=== PATIENT | male | born 1955 | race Caucasian/White ===

== ENCOUNTER 2018-06-12 09:01 | Emergency (ER) | payer OTHER ==
[~2018-06-12] VITALS: Ht 170.2 cm; Wt 70.0 kg
[2018-06-12 09:08] VITALS: Ht 170.2 cm; Wt 70.0 kg
[2018-06-12] MEDS ORDERED: LIDOCAINE/MYLANTA 40 ML BTL PO STA (09:32)
[2018-06-12] MEDS ORDERED: FAMOTIDINE 20 MG INJ IV STA (09:32)
[2018-06-12] MEDS ORDERED: BELLADONNA/PHENOBARBITAL TAB PO STA (09:32)
--- NOTE | 2018-06-12 09:58 | ERD ---
ER Documentation Chief Complaint Chief Complaint BIB RA FOR EVAL OF COUGH X [address] MAGALLANES HPI 62-year-old gentleman who presents with family member who is interpreting. The patient has had several weeks of discomfort. He describes burning epigastric abdominal discomfort that radiates up into his chest that is postprandial worse with spicy and fried foods. Patient had followed up with primary care physician for similar symptoms. He denies any chest pain or pressure, no exertional symptoms. He denies any nausea or vomiting. He does take a PPI. He has not seen a GI specialist. No melena. ROS All systems reviewed and are negative except as per history of present illness. Medications Home Meds Active Scripts Sucralfate* (Carafate*) 1 Gm Tab, 1 GM PO WITH MEALS, #10 TAB Prov:DARLINE GOLDSTEIN MD 06/12/18 Omeprazole* (Omeprazole*) 20 Mg Capsule., 20 MG PO DAILY, #30 Prov:DARLINE GOLDSTEIN MD 06/12/18 Reported Medications Ergocalciferol (Vitamin D2) (VITAMIN D2) 50,000 Unit Capsule, 20038 UNIT PO Q7D, CAP 06/12/18 Meclizine Hcl* (Meclizine Hcl*) 25 Mg Tablet, 25 MG PO BID PRN for DIZZINESS, TAB 06/12/18 Aspirin* (Aspirin* EC) 81 Mg Tablet.dr, 81 MG PO DAILY, TAB 06/12/18 Omeprazole* (Omeprazole*) 40 Mg Capsule.dr, 40 MG PO DAILY, #30 CAP 06/12/18 Metformin Hcl* (Metformin Hcl*) 1,000 Mg Tablet, 1000 MG PO WITH BREAKFAST DINNE, #60 TAB 06/12/18 Sitagliptin* (Januvia*) 100 Mg Tablet, 100 MG PO DAILY, #30 TAB 06/12/18 Allergies Allergies: Coded Allergies: No Known Allergy (Unverified , 06/12/18) PMhx/Soc History of Surgery: Yes (appendectomy ) Hx Cardiac Disorders: Yes (htn) Hx Miscellaneous Medical Probl: Yes (gerd) Hx Alcohol Use: No Hx Substance Use: No Hx Tobacco Use: Yes Smoking Status: Current every day smoker FmHx Family History: No diabetes Physical Exam Vitals Vital Signs Date Temp Pulse Resp B/P (MAP) Pulse Ox O2 O2 Flow FiO2 Time Delivery Rate 06/12/18 90 20 150/99 95 Room Air 11:09 (116) 06/12/18 89 25 150/96 97 Room Air 09:29 (114) 06/12/18 98.2 94 17 134/74 95 09:08 (94) Physical Exam General: Well developed, well nourished, no acute distress Head: Normocephalic, atraumatic. Eyes: Pupils equally reactive, EOM intact ENT: Moist mucous membranes Neck: Supple, no lymphadenopathy Respiratory: Lungs clear bilaterally, no distress Cardiovascular: RRR, no murmurs, rubs, or gallops Abdominal: Soft, mild epigastric abdominal discomfort and tenderness to palpat ion without rebound or guarding, negative Shin sign, no tenderness to McBurney's point, no pulsatile mass : Deferred MSK: No edema, no unilateral swelling, 5/5 strength Neurologic: Alert and oriented, moving all extremities, normal speech, no focal weakness, no cerebellar signs Skin: No rash Psych: Normal mood Result Diagram: 06/12/1895806/12/1859 Results 24 hrs Laboratory Tests Test 06/12/18 09:59 White Blood Count 9.2 10^3/ul Red Blood Count 4.81 10^6/ul Hemoglobin 15.9 g/dl Hematocrit 44.8 % Mean Corpuscular Volume 93.1 fl Mean Corpuscular Hemoglobin 33.1 pg Mean Corpuscular Hemoglobin Concent 35.5 g/dl Red Cell Distribution Width 12.8 % Platelet Count 271 10^3/UL Mean Platelet Volume 8.4 fl Immature Granulocytes % 0.300 % Neutrophils % 58.7 % Lymphocytes % 30.1 % Monocytes % 7.7 % Eosinophils % 2.7 % Basophils % 0.5 % Nucleated Red Blood Cells % 0.0 /100WBC Immature Granulocytes # 0.030 10^3/ul Neutrophils # 5.4 10^3/ul Lymphocytes # 2.8 10^3/ul Monocytes # 0.7 10^3/ul Eosinophils # 0.3 10^3/ul Basophils # 0.1 10^3/ul Nucleated Red Blood Cells # 0.0 10^3/ul Sodium Level 139 mmol/L Potassium Level 4.0 mmol/L Chloride Level 104 mmol/L Carbon Dioxide Level 23 mmol/L Anion Gap 12 Blood Urea Nitrogen 10 mg/dl Creatinine 0.55 mg/dl Est Glomerular Filtrat Rate mL/min > 60 mL/min Glucose Level 162 mg/dl Calcium Level 9.8 mg/dl Total Bilirubin 0.3 mg/dl Direct Bilirubin 0.00 mg/dl Indirect Bilirubin 0.3 mg/dl Aspartate Amino Transf (AST/SGOT) 24 IU/L Alanine Aminotransferase (ALT/SGPT) 23 IU/L Alkaline Phosphatase 74 IU/L Troponin I < 0.012 ng/ml Total Protein 8.2 g/dl Albumin 4.5 g/dl Globulin 3.70 g/dl Albumin/Globulin Ratio 1.21 Lipase 200 U/L Current Medications Medications Dose Sig/Ameya Start Time Status Last (Trade) Ordered Route PRN Stop Time Admin Dose Reason Admin Famotidine 20 mg ONCE STAT 06/12/18 DC 06/12/18 (Pepcid Iv) IV 09:32 06/12/18 09:54 09:37 40 ml ONCE STAT 06/12/18 DC 06/12/18 Miscellaneous PO 09:32 06/12/18 09:53 Medication 09:37 (Gi Cocktail (2)) Belladonna/ 2 tab ONCE STAT 06/12/18 DC 06/12/18 Phenobarbital PO 09:32 06/12/18 09:54 () 09:37 Procedures/MDM EKG, MONITORS, & DIAGNOSTIC IMAGING: EKG: I reviewed and interpreted a 12-lead EKG. Rhythm: Normal sinus rhythm ST Changes: No contiguous ST segment elevations T waves: No contiguous T wave inversions Impression: [No evidence of acute cardiac ischemia] Ultrasound gallbladder: IMPRESSION: Small polyp within the gallbladder. Fatty infiltration of the liver. 3 cm hypoechoic area within the right lobe of the liver, may represent focal fatty sparing versus a liver mass. Further evaluation with a liver MRI with contrast is recommended. Chest x-ray: Chest x-ray: I reviewed and interpreted a 1 view of the chest Mediastinum: No enlargement Cardiac silhouette: No cardiomegaly Airspace: Clear lung marie bilaterally without evidence of pneumothorax Bones: No evidence of fracture LAB INTERPRETATION: I reviewed the laboratory testing and it shows [no evidence of acute process] MEDICAL DECISION MAKING: Signs and symptoms are very consistent with likely GI process such as peptic ulcer disease, gastroesophageal reflux or gastritis. Lower concern for cardiac etiology given no exertional symptoms and better alternative diagnosis. The patient is a smoker without signs or symptoms concerning for acute pulmonary process. Given that the patient does have some mild epigastric and slightly right-sided tenderness I do believe an ultrasound of the gallbladder would be appropriate. Low concern for alternative acute intra-abdominal process. ER COURSE: * GI cocktail provided * Symptoms improved. Laboratory testing and diagnostic imaging is unrevealing. Ultrasound report discussed with family and need for outpatient follow-up and unlikely consistent with mass. No indication for emergent imaging. * Reassurance provided and the patient needs to follow-up with a GI provider. CONSULTATION: [None] DISPOSITION PLAN: The patient does not have an identifiable emergent medical condition that warrants inpatient hospitalization at this time. The patient is deemed safe for discharge with outpatient follow-up. We discussed follow up with the patient's primary care doctor within 24 to 48 hours as needed. We also discussed return to the emergency room for worsening symptoms or worsening condition. Outpatient referral: [facility] Discharge Medications: Prilosec, sucralfate Departure Diagnosis: Primary Impression: Dyspepsia Additional Impression: Epigastric abdominal pain Condition: Stable DARLINE GOLDSTEIN MD Jun 12, 2018 09:58
[2018-06-12] MEDS ORDERED: SITA100T11 PO (11:18)
[2018-06-12] MEDS ORDERED: METF100010 PO (11:19)
[2018-06-12] MEDS ORDERED: OMEP40CA6 PO (11:19)
[2018-06-12] MEDS ORDERED: ASPI-817 PO (11:19)
[2018-06-12] MEDS ORDERED: ERGO500013 PO (11:20)
[2018-06-12] MEDS ORDERED: MECL-77 PO (11:20)
[2018-06-12] MEDS ORDERED: SUCR1TAB56 PO (11:36)
[2018-06-12] MEDS ORDERED: OMEP20CA16 PO (11:36)
[2018-06-12 12:42] VITALS: BP 132/90; PULSE 88; RESP 17
== END 2018-06-12 12:44 | disposition home or self-care (01) ==
LOC: EDSEX 09:01 → E/R 09:01
DX: R10.13 Epigastric pain (principal); I10 Essential (primary) hypertension; F17.210 Nicotine dependence, cigarettes, uncomplicated; Z79.82 Long term (current) use of aspirin; Z79.84 Long term (current) use of oral hypoglycemic drugs
CPT/HCPCS: 36415; 71045; 76705; 80053; 83690; 84484; 85025; 93005; 96374; Z7502; Z7610